=== PATIENT | male | born 1990 | race Caucasian/White ===

== ENCOUNTER → 2024-10-04 09:29 | Outpatient (REF) | payer BC, SELFPAY ==
[2024-10-04 10:09] LABS: % Basophils 0.7 % (0-2); % Eosinophils 1.7 % (0-6); % Immature Granulocytes 0.2 % (0-0.5); % Lymphocytes 22.8 % (20.5-51.1); % Monocytes 10.1 % (1.7-9.3); % Neutrophils 64.5 % (42.2-75.2); Absolute Eosinophils 0.1 10^3/uL (0-0.7); Absolute Lymphocytes 1.4 10^3/uL (1.2-3.4); Absolute Monocytes 0.6 10^3/uL (0.1-0.6); Absolute Neutrophils 3.9 10^3/uL (1.4-6.5); Hematocrit 45.7 % (39.0-52.0); Mean Corpuscular Volume 85.7 fL (80.0-94.0); Mean Platelet Volume 9.5 fL (7.4-10.4); Nucleated Red Blood Cells % 0 % (-); Platelet Count 222 10^3/uL (130-400); Red Blood Cell Count 5.33 10^6/uL (4.70-6.10); Red Cell Dist. Width 12.9 % (11.5-14.5)
[2024-10-04 10:37] LABS: ALT (SGPT) 39 U/L (0-50); AST (SGOT) 29 U/L (17-59); Albumin 5.1 g/dl (3.5-5.0); Alkaline Phosphatase 52 U/L (38-126); Blood Urea Nitrogen 25 mg/dl (9-20); Calcium 9.6 mg/dl (8.4-10.2); Carbon Dioxide 30 mmol/L (22-30); Chloride 102 mmol/L (98-107); Glucose 87 mg/dl (70-99); HDL Cholesterol 63 mg/dl; LDL Cholesterol, Calculated 117 mg/dl; Potassium 4.7 mmol/L (3.5-5.1); Sodium 144 mmol/L (135-145); Total Bilirubin 1.2 mg/dl (0.2-1.3); Total Cholesterol 191 mg/dl (50-199); Total Protein 7.9 g/dl (6.3-8.2); Triglyceride 57 mg/dl (10-149); Very Low Density Lipoprotein 11 mg/dl (0-30); eGFR > 60.00
[2024-10-04 11:06] LABS: TSH 1.13 uIU/ml (0.47-4.68)
== END ==
LOC: REG 09:29
PROVIDERS: ATTENDING PHYSICIAN Family Medicine
DX: Z00.00 Encounter for general adult medical examination without abnormal findings (principal)
CPT/HCPCS: 36415; 80053; 80061; 84443; 85025

== ENCOUNTER → 2025-10-17 08:45 | Outpatient (REF) | payer BC, SELFPAY ==
[2025-10-17 09:43] LABS: Hematocrit 41.0 % (39.0-52.0); Hemoglobin 14.3 g/dL (13.0-18.0); Mean Corp Hgb Conc. 34.9 g/dL (33.0-37.0); Mean Corpuscular Volume 86.3 fL (80.0-94.0); Nucleated Red Blood Cells % 0 % (-); Platelet Count 249 10^3/uL (130-400); Red Cell Dist. Width 13.3 % (11.5-14.5)
[2025-10-17 10:07] LABS: ALT (SGPT) 35 U/L (0-50); AST (SGOT) 25 U/L (17-59); Albumin 4.5 g/dl (3.5-5.0); Alkaline Phosphatase 54 U/L (38-126); Blood Urea Nitrogen 18 mg/dl (9-20); Calcium 9.7 mg/dl (8.4-10.2); Carbon Dioxide 31 mmol/L (22-30); Chloride 102 mmol/L (98-107); Glucose 84 mg/dl (70-99); HDL Cholesterol 44 mg/dl; LDL Cholesterol, Calculated 100 mg/dl; Potassium 4.7 mmol/L (3.5-5.1); Sodium 137 mmol/L (135-145); Total Protein 7.4 g/dl (6.3-8.2); Very Low Density Lipoprotein 13 mg/dl (0-30); eGFR > 60.00
[2025-10-17 10:36] LABS: TSH 0.84 uIU/ml (0.47-4.68)
== END ==
LOC: REG 08:45
PROVIDERS: ATTENDING PHYSICIAN Family Medicine
DX: Z00.00 Encounter for general adult medical examination without abnormal findings (principal)
CPT/HCPCS: 36415; 80053; 80061; 84443; 85025